=== PATIENT | female | born 1990 | race Caucasian/White ===

== ENCOUNTER 2024-10-29 23:16 | Inpatient (IN) | payer OTHER, SELFPAY ==
[2024-10-29 23:28] VITALS: BMI 26.7
[2024-10-29 23:57] LABS: % Basophils 0.3 % (0-2); % Eosinophils 0.5 % (0-6); % Immature Granulocytes 0.4 % (0-0.5); % Neutrophils 68.8 % (42.2-75.2); Absolute Eosinophils 0.1 10^3/uL (0-0.7); Absolute Lymphocytes 2.7 10^3/uL (1.2-3.4); Absolute Monocytes 0.5 10^3/uL (0.1-0.6); Absolute Neutrophils 7.5 10^3/uL (1.4-6.5); Hematocrit 34.9 % (37.0-47.0); Hemoglobin 11.9 g/dL (12.0-16.0); Mean Corp Hgb Conc. 34.1 g/dL (33.0-37.0); Mean Corpuscular Hgb 30.9 pg (27.0-31.0); Mean Corpuscular Volume 90.6 fL (81.0-99.0); Mean Platelet Volume 11.3 fL (7.4-10.4); Nucleated Red Blood Cells % 0 %; Platelet Count 168 10^3/uL (130-400); Red Blood Cell Count 3.85 10^6/uL (4.20-5.40); Red Cell Dist. Width 13.2 % (11.5-14.5); White Blood Cell Count 10.9 10^3/uL (4.8-10.8)
[2024-10-30] MEDS: PENICILLIN 110 UNITS IV (00:05)
[2024-10-30] MEDS: LR 1000 IV (00:06)
[2024-10-30] MEDS: PENICILLIN 55 UNITS IV (04:24)
[2024-10-30 06:37] VITALS: BP 127/85
[2024-10-30] MEDS: PITOCIN 30 UNITS/NSS 500 ML IV (07:33)
[2024-10-30] MEDS: MOTRIN 600 MG PO ×3 (08:37→20:30)
[2024-10-30] MEDS: ZOLOFT 100 MG PO (08:46)
[2024-10-30] MEDS: PENICILLIN IV (14:00)
[2024-10-30] MEDS: TYLENOL 650 MG PO ×2 (14:43→20:31)
[2024-10-30] MEDS: SENOKOT-S 1 TABLET PO (14:54)
[2024-10-31] MEDS: MOTRIN 600 MG PO ×2 (04:17→11:39)
[2024-10-31] MEDS: TYLENOL 650 MG PO ×2 (04:17→11:39)
[2024-10-31 05:02] LABS: Hemoglobin 10.2 g/dL (12.0-16.0)
[2024-10-31] MEDS: ZOLOFT 100 MG PO (08:47)
[2024-10-31] MEDS: SENOKOT-S 1 TABLET PO (08:47)
--- NOTE | 2024-10-31 11:21 | CM ---
Met with new parents Justina and Jarrett at bedside
Confirmed address and phone number listed
Living in the home are parents and their 2 daughters (2 & 5 years old)
Parents have named Duane Frank
Father of baby supportive and + family support
Parents report they have all supplies for including car seat and crib
Peds - [facility]
[employer] [facility] - [facility]
Pt scored 10 on PP depression scale
Spoke with pt - reports hx of depression. Has therapist through the [facility] - Lauren, whom she sees routinely. Currently on Zoloft
Mom reports she does not currently feel depressed and does not feel she would harm herself. She feels safe and has support from her
Encouraged to schedule appt with her therapist at discharge and to seek assistance if she is feeling depressed/down
Mom acknowledged she would schedule appt with therapist and seek assistance if needed
Updated RN
[2024-11-01 13:39] LABS: Syphilis/T. pallidum Ab Reflex Negative (Negative)
== END 2024-10-31 15:10 | disposition home or self-care (01) | DRG 807 ==
LOC: LDRP 23:16
PROVIDERS: Obstetrics & Gynecology; ADMITTING PHYSICIAN Obstetrics & Gynecology
PROC: 4A1HXCZ Monitoring of Products of Conception, Cardiac Rate, External Approach (ICD-10-PCS; 2024-10-29)
PROC: 10E0XZZ Delivery of Products of Conception, External Approach (ICD-10-PCS; 2024-10-30)
PROC: 0KQM0ZZ Repair Perineum Muscle, Open Approach (ICD-10-PCS; 2024-10-30)
DX: O99.824 Streptococcus B carrier state complicating childbirth (principal); Z37.0 Single live birth; O99.344 Other mental disorders complicating childbirth; Z3A.39 39 weeks gestation of pregnancy; O70.1 Second degree perineal laceration during delivery; O69.81X0 Labor and delivery complicated by cord around neck, without compression, not applicable or unspecified; O77.0 Labor and delivery complicated by meconium in amniotic fluid; Z79.899 Other long term (current) drug therapy
CPT/HCPCS: 88307; 36415; 85014; 85018; 85025; 86780; 86850; 86900; 86901